=== PATIENT | female | born 1950 | race Caucasian/White ===

== ENCOUNTER → 2018-03-11 | Outpatient (REF) | payer MEDICARE, OTHER ==
[2018-03-11 14:28] LABS: ALBUMIN 3.7 g/dL (3.2-5.0); CREATININE 1.5 mg/dL (0.5-1.0)
[2018-03-11 14:29] LABS: POTASSIUM 5.3 mmol/l (3.5-5.1)
== END | disposition home or self-care (01) ==
LOC: LAB 13:47
PROVIDERS: ATTEND Internal Medicine
DX: N18.3 Chronic kidney disease, stage 3 (moderate) (principal); E87.2 Acidosis; I10 Essential (primary) hypertension; E87.5 Hyperkalemia

== ENCOUNTER → 2018-08-04 | Outpatient (REF) | payer MEDICARE, OTHER | END | disposition home or self-care (01) | LOC: ULTRASND 12:24 | PROVIDERS: ATTEND Internal Medicine | DX: I70.213 Atherosclerosis of native arteries of extremities with intermittent claudication, bilateral legs (principal) ==

== ENCOUNTER 2024-05-05 11:35 | Emergency (ER) | payer MEDICARE, OTHER ==
[2024-05-05] VITALS (10 sets, daily range): BP systolic 129–159; BP diastolic 81–96
[~2024-05-05] VITALS: Ht 152.4 cm; Wt 52.0 kg
[~2024-05-05 11:35] MED LIST: ACTEMRA400 MG/20 IV; AMLODIPINE BESY10 MG PO; ATORVASTATIN CA40 MG PO; CARAFATE1 GM PO; CHLORTHALID50 MG PO; CLOPIDOGREL75 MG PO; DOXEPIN HCL10 MG PO; LABETALOL HYDR200 MG PO; OMEPRAZOLE DR40 MG PO; POTASSIUM CHLO20 MEQ PO; PROLIA60 MG/ML SC; TRESIBA FL100 UNIT/M SC
[2024-05-05 12:59] LABS: BASO% 0.6 % (0-3); EOS% 3.4 % (0-8); HEMATOCRIT 41.4 % (37.0-47.0); IMMATURE GRANULOCYTES 0.1 % (0.0-5.0); LYMPH% 20.1 % (15-41); MEAN CELL VOLUME 99.8 fL CALC (80.0-100.0); MEAN CORPUSCULAR HGB 33.7 pG CALC (26.0-32.0); MEAN CORPUSCULAR HGB CONC 33.8 g/dL CAL (32.0-36.0); MONO% 7.4 % (2-13); NEUT# 5.26 thou/uL (2.00-7.15); NEUT% 68.4 % (42-76); RED BLOOD COUNT 4.15 mill/uL (4.20-5.60); RED CELL DISTRI WIDTH 11.6 % (11.5-15.5)
[2024-05-05 13:11] LABS: ALBUMIN 4.3 g/dL (3.2-5.0); CREATININE 1.3 mg/dL (0.5-1.0); TOTAL PROTEIN 6.5 g/dL (6.3-8.2)
[2024-05-05 13:15] LABS: BILIRUBIN, TOTAL 1.1 mg/dL (0.02-1.3); POTASSIUM 4.7 mmol/l (3.5-5.1)
[2024-05-05] MEDS ORDERED: ALUM & MAG HYDROX-SIMETHICONE 30 ML PO ONE (13:40)
[2024-05-05] MEDS ORDERED: LIDOCAINE VISCOUS 2% 15 ML UDC PO ONE (13:40)
[2024-05-05 13:44] LABS: URINE BILIRUBIN - DIPSTICK Negative (NEGATIVE); URINE BLOOD DIPSTICK Trace-intact (NEGATIVE); URINE GLUCOSE - DIPSTICK Negative (NEGATIVE); URINE KETONE Negative (NEGATIVE); URINE LEUK ESTERASE Negative (NEGATIVE); URINE NITRITE - DIPSTICK Negative (Negative); URINE PH 5.5 (4.5-8.0); URINE PROTEIN - DIPSTICK Negative (NEG-TRACE); URINE UROBILINOGEN - DIPSTICK 0.2 E.U./dL (0.2)
[2024-05-05] MEDS ORDERED: Pantoprazole Sodium 40 MG VIAL (Protonix) IV ONE (14:05)
[2024-05-05] MEDS ORDERED: MORPHINE SULFATE 4 MG/ML VIAL IV ONE (14:10)
[2024-05-05] MEDS ORDERED: FAMOTIDINE 10MG/ML 2ML SDV IV ONE (14:10)
[2024-05-05] MEDS ORDERED: MORPHINE SULFATE 4 MG/ML VIAL IV STA (14:16)
[2024-05-05 14:38] LABS: URINE COLOR Yellow
[2024-05-05] MEDS ORDERED: LORTAB 5/3255 MG PO (16:13)
== END 2024-05-05 16:35 | disposition home or self-care (01) ==
LOC: ED 11:35
PROVIDERS: Family Medicine
DX: R10.13 Epigastric pain (principal); K86.2 Cyst of pancreas; I12.9 Hypertensive chronic kidney disease with stage 1 through stage 4 chronic kidney disease, or unspecified chronic kidney disease; E11.22 Type 2 diabetes mellitus with diabetic chronic kidney disease; N18.4 Chronic kidney disease, stage 4 (severe); Z79.4 Long term (current) use of insulin
CPT/HCPCS: J2470

== ENCOUNTER 2024-06-09 11:19 | Emergency (ER) | payer MEDICARE, OTHER ==
[~2024-06-09] VITALS: Ht 152.4 cm; Wt 43.4 kg
[~2024-06-09 11:19] MED LIST changes: +LORTAB 5/3255 MG PO
[2024-06-09 14:19] VITALS: BP 137/83
== END 2024-06-09 14:24 | disposition left against medical advice (07) ==
LOC: ED 11:19 → LWOBS 13:20
DX: Z53.21 Procedure and treatment not carried out due to patient leaving prior to being seen by health care provider (principal)

== ENCOUNTER 2024-06-21 09:24 | Day surgery (SDC) | payer MEDICARE ==
[~2024-06-21] VITALS: Ht 152.4 cm; Wt 43.1 kg
[~2024-06-21 09:24] MED LIST changes: +JANUVIA25 MG PO; +LORTAB 1010 MG PO; +SODIUM BICARBI650 MG PO; +[UNRECOGNIZED DRUG - OTHER] CI
[2024-06-21] MEDS ORDERED: FAMOTIDINE 10MG/ML 2ML SDV IV ONE (09:35)
[2024-06-21] MEDS ORDERED: LEVALBUTEROL HCL 1.25 MG/3 ML VIAL ONE (09:35)
[2024-06-21] MEDS ORDERED: SODIUM CHLORIDE 0.9% 100 ML IV ONE (09:36)
[2024-06-21] MEDS ORDERED: SODIUM CHLORIDE 0.9% 1,000 ML IV ONE (09:36)
[2024-06-21] MEDS ORDERED: ceFAZolin Sodium 2 GM/VIAL SDV ONE (09:36)
[2024-06-21] MEDS ORDERED: LIDOcaine HCl 1% (Local Anesth.) 20 ML VIAL ONE (10:17)
[2024-06-21] MEDS ORDERED: GLUCAGON HCL (Rdna) 1 MG VIAL ONE (10:19)
[2024-06-21] MEDS ORDERED: ISOVUE-300 (Iopamidol) 100 ML SDV IV ONE (10:19)
[2024-06-21] MEDS ORDERED: FAMOTIDINE20 M3 PO (11:44)
[2024-06-21] MEDS ORDERED: HYDROmorphone HCL 2 MG/AMP ONE (12:11)
[2024-06-21 13:48] VITALS: BP 149/97
[2024-06-21] MEDS ORDERED: LIDOCAINE HCL 2% 2ML SDV IV ONE (14:45)
[2024-06-21] MEDS ORDERED: SUCCINYLCHOLINE CHLORIDE 20 MG/ML 10ML VIAL IV ONE (14:45)
[2024-06-21] MEDS ORDERED: SUGAMMADEX SODIUM 200 MG/2 ML SDV IV ONE (14:45)
[2024-06-21] MEDS ORDERED: ACETAMINOPHEN 1,000 MG/100 ML VIAL IV ONE (14:45)
[2024-06-21] MEDS ORDERED: PROPOFOL 200 MG/20 ML VIAL IV ONE (14:45)
[2024-06-21] MEDS ORDERED: SODIUM CHLORIDE 0.9% 1,000 ML BAG IV ONE (14:45)
[2024-06-21] MEDS ORDERED: ONDANSETRON HCl 4 MG/2 ML SDV IV ONE (14:45)
[2024-06-21] MEDS ORDERED: ROCURONIUM BROMIDE 10 MG/ML 5ML VIAL IV ONE (14:45)
== END 2024-06-21 13:36 | disposition home or self-care (01) ==
LOC: ORM 09:24
PROVIDERS: ATTEND Surgery
PROC: 0FT44ZG Resection of Gallbladder, Percutaneous Endoscopic Approach, Hand-Assisted (ICD-10-PCS; principal; 2024-06-21)
PROC: 0FB04ZX Excision of Liver, Percutaneous Endoscopic Approach, Diagnostic (ICD-10-PCS; 2024-06-21)
PROC: 0DB48ZX Excision of Esophagogastric Junction, Via Natural or Artificial Opening Endoscopic, Diagnostic (ICD-10-PCS; 2024-06-21)
PROC: 0DB78ZX Excision of Stomach, Pylorus, Via Natural or Artificial Opening Endoscopic, Diagnostic (ICD-10-PCS; 2024-06-21)
DX: K81.1 Chronic cholecystitis (principal); C22.9 Malignant neoplasm of liver, not specified as primary or secondary; K29.70 Gastritis, unspecified, without bleeding; K20.90 Esophagitis, unspecified without bleeding; K31.89 Other diseases of stomach and duodenum; K44.9 Diaphragmatic hernia without obstruction or gangrene; I12.9 Hypertensive chronic kidney disease with stage 1 through stage 4 chronic kidney disease, or unspecified chronic kidney disease; N18.32 Chronic kidney disease, stage 3b; K58.0 Irritable bowel syndrome with diarrhea; F17.200 Nicotine dependence, unspecified, uncomplicated
CPT/HCPCS: J0131; J0690; J1171; J1610; J2405; Q9966

== ENCOUNTER 2024-06-24 12:35 | Emergency (ER) | payer MEDICARE ==
[~2024-06-24] VITALS: Ht 152.4 cm; Wt 46.0 kg
[2024-06-24] VITALS (12 sets, daily range): BP systolic 142–169; BP diastolic 78–93
[~2024-06-24 12:35] MED LIST changes: +FAMOTIDINE20 M3 PO
[2024-06-24] MEDS ORDERED: SODIUM CHLORIDE 0.9% 1,000 ML IV ONE ×2 (13:15→15:15)
[2024-06-24] MEDS ORDERED: ONDANSETRON HCl 4 MG/2 ML SDV IV ONE (13:15)
[2024-06-24 13:28] LABS: BASO% 0.3 % (0-3); EOS% 2.3 % (0-8); HEMOGLOBIN 14.4 g/dl (12.0-16.0); IMMATURE GRANULOCYTES 0.2 % (0.0-5.0); LYMPH% 10.5 % (15-41); MEAN CELL VOLUME 95.1 fL CALC (80.0-100.0); MEAN CORPUSCULAR HGB 33.4 pG CALC (26.0-32.0); MEAN CORPUSCULAR HGB CONC 35.1 g/dL CAL (32.0-36.0); MONO% 7.1 % (2-13); NEUT# 9.53 thou/uL (2.00-7.15); NEUT% 79.6 % (42-76); RED BLOOD COUNT 4.31 mill/uL (4.20-5.60); RED CELL DISTRI WIDTH 12.4 % (11.5-15.5)
[2024-06-24 13:59] LABS: BILIRUBIN, TOTAL 0.7 mg/dL (0.02-1.3); CREATININE 1.7 mg/dL (0.5-1.0); TOTAL PROTEIN 6.4 g/dL (6.3-8.2)
[2024-06-24] MEDS ORDERED: MORPHINE SULFATE 4 MG/ML VIAL IV ONE ×2 (14:30→16:15)
[2024-06-24 14:43] LABS: URINE BLOOD DIPSTICK Negative (NEGATIVE); URINE COLOR Yellow; URINE GLUCOSE - DIPSTICK Negative (NEGATIVE); URINE KETONE 40 mg/dL (NEGATIVE); URINE LEUK ESTERASE Negative (NEGATIVE); URINE NITRITE - DIPSTICK Negative (Negative); URINE PH 6.5 (4.5-8.0); URINE PROTEIN - DIPSTICK 30 mg/dL (NEG-TRACE); URINE SPECIFIC GRAVITY 1.015; URINE UROBILINOGEN - DIPSTICK 0.2 E.U./dL (0.2)
[2024-06-24] MEDS ORDERED: POTASSIUM CHLORIDE 20MEQ 100 ML IV ONE (15:15)
[2024-06-24 15:16] LABS: URINE EPITHELIAL CELLS FEW EPI/hpf (0-FEW); URINE MUCUS MODERATE hpf (NONE-FEW)
[2024-06-24] MEDS ORDERED: ONDANSETRON4 MG PO (16:49)
[2024-06-30] MEDS ORDERED: LORTAB 1010 MG PO (13:48)
== END 2024-06-24 17:33 | disposition home or self-care (01) ==
LOC: ED 12:35
PROVIDERS: Nurse Practitioner
DX: R10.84 Generalized abdominal pain (principal); R11.10 Vomiting, unspecified; I12.9 Hypertensive chronic kidney disease with stage 1 through stage 4 chronic kidney disease, or unspecified chronic kidney disease; E11.22 Type 2 diabetes mellitus with diabetic chronic kidney disease; N18.4 Chronic kidney disease, stage 4 (severe); I71.43 Infrarenal abdominal aortic aneurysm, without rupture; F17.200 Nicotine dependence, unspecified, uncomplicated; Z86.73 Personal history of transient ischemic attack (TIA), and cerebral infarction without residual deficits; Z79.84 Long term (current) use of oral hypoglycemic drugs; Z79.4 Long term (current) use of insulin; Z90.49 Acquired absence of other specified parts of digestive tract
CPT/HCPCS: J2405; J3480; Q9967